=== PATIENT | female | born 1945 | race Caucasian/White ===

== ENCOUNTER 2018-10-18 14:04 | Emergency (ER) | payer MEDICARE ==
[~2018-10-18] VITALS: Ht 160 cm; Wt 78.0 kg
[2018-10-18] MEDS ORDERED: ipratropium/albuterol 3ml nebule NEB ONE (14:25)
[2018-10-18 15:02] LABS: BASOPHILS % (AUTO) 0.3 % (0-1); EOSINOPHILS # (AUTO) 0.2 X10'3 (0-0.9); EOSINOPHILS % (AUTO) 2.6 % (0-6); HEMATOCRIT 43.7 % (35.0-45.0); HEMOGLOBIN 14.7 g/dl (12.0-16.0); LYMPHOCYTES # (AUTO) 1.5 X10'3 (1.1-4.8); LYMPHOCYTES % (AUTO) 21.4 % (21-51); MEAN CORPUSCULAR HEMOGLOBIN 30.8 PG (27.0-31.0); MEAN CORPUSCULAR HGB CONC 33.5 g/dL (33.0-36.5); MEAN CORPUSCULAR VOLUME 91.9 FL (78-98); MEAN PLATELET VOLUME 7.7 FL (7.4-10.4); MONOCYTES # (AUTO) 0.5 X10'3 (0-0.9); MONOCYTES % (AUTO) 6.8 % (2-12); NEUTROPHILS # (AUTO) 4.7 X10'3 (1.8-7.7); NEUTROPHILS % (AUTO) 68.9 % (42-75); PLATELET COUNT 245 X10'3 (140-440); RED BLOOD COUNT 4.76 X10'6 (4.20-5.60); RED CELL DISTRIBUTION WIDTH 14.5 % (11.5-14.5); WHITE BLOOD COUNT 6.8 X10'3 (4.5-11.0)
[2018-10-18 15:17] LABS: ALANINE AMINOTRANSFERASE 44 U/L (12-78); ALBUMIN 3.7 G/DL (3.4-5.0); ALBUMIN/GLOBULIN RATIO 1.1 (1.1-1.5); ALKALINE PHOSPHATASE 98 IU/L (46-116); ANION GAP 10 (8-16); ASPARTATE AMINO TRANSFERASE 35 U/L (10-37); BILIRUBIN,TOTAL 0.5 MG/DL (0.1-1.0); BLOOD UREA NITROGEN 12 MG/DL (7-18); BUN/CREATININE RATIO 11.8 (6.6-38.0); CALCIUM 9.1 MG/DL (8.5-10.1); CHLORIDE 102 MMOL/L (99-107); CREATININE 1.02 MG/DL (0.40-0.90); GLUCOSE 131 MG/DL (70-104); POTASSIUM 3.4 MMOL/L (3.5-5.1); SODIUM 138 MMOL/L (135-145); TOTAL CARBON DIOXIDE 26.1 MMOL/L (24-32); TOTAL PROTEIN 7.2 G/DL (6.4-8.2); eGFR 53 ML/MIN
[2018-10-18] MEDS ORDERED: methylPREDNISolone sod succ 125mg/2ml vial IM ONE (15:55)
[2018-10-18] MEDS ORDERED: clarithromycin 250mg tablet PO ONE (16:00)
[2018-10-18] MEDS ORDERED: CLAR500T PO (16:12)
[2018-10-18] MEDS ORDERED: METH4TAB81 PO (16:12)
[2018-10-18 17:11] VITALS: BP 97/65
== END 2018-10-18 17:13 | disposition home or self-care (01) ==
LOC: ER 14:04
DX: J20.9 Acute bronchitis, unspecified (principal); E78.00 Pure hypercholesterolemia, unspecified; I10 Essential (primary) hypertension; K21.9 Gastro-esophageal reflux disease without esophagitis; Z87.891 Personal history of nicotine dependence; Z91.030 Bee allergy status
CPT/HCPCS: 36415; 71045; 80053; 83880; 84145; 85025; 93005; 94640; 96372; 99284; J2930

== ENCOUNTER 2021-05-06 11:10 | Emergency (ER) | payer BC, MEDICARE ==
[~2021-05-06] VITALS: Ht 160 cm; Wt 78.0 kg
[~2021-05-06 11:10] MED LIST: METH4TAB81 PO
[2021-05-06 11:11] VITALS: BP 130/90
== END 2021-05-06 12:38 | disposition home or self-care (01) ==
LOC: ER 11:11
DX: U07.1 COVID-19 (principal); R50.9 Fever, unspecified; I10 Essential (primary) hypertension; E78.00 Pure hypercholesterolemia, unspecified; K21.9 Gastro-esophageal reflux disease without esophagitis; Z91.030 Bee allergy status
CPT/HCPCS: 36415; 99283; U0003; U0005

== ENCOUNTER 2024-07-23 09:59 | Outpatient (CLI) | payer BC, MEDICAID ==
[2024-07-23 10:51] VITALS: PULSE 78; RESP 16; O2SAT 96
== END 2024-07-23 23:59 | disposition home or self-care (01) ==
LOC: RT 09:59
PROVIDERS: ATTEND Family Medicine
DX: J44.9 Chronic obstructive pulmonary disease, unspecified (principal)
CPT/HCPCS: 94010; 94760